=== PATIENT | male | born 1960 | race Caucasian/White ===

== ENCOUNTER → 2019-10-25 12:06 | Outpatient (BNVA) | payer MEDICARE, SELFPAY | PROVIDERS: Family Provider Nurse Practitioner; PCP Nurse Practitioner; Visit Provider Specialist | DX: G40.409 Other generalized epilepsy and epileptic syndromes, not intractable, without status epilepticus (principal); G40.209 Localization-related (focal) (partial) symptomatic epilepsy and epileptic syndromes with complex partial seizures, not intractable, without status epilepticus; F17.210 Nicotine dependence, cigarettes, uncomplicated | CPT/HCPCS: 99214 ==

== ENCOUNTER → 2019-11-05 09:57 | Outpatient (BNVA) | payer MEDICARE, MEDICAID, SELFPAY | PROVIDERS: Family Provider Nurse Practitioner; PCP Nurse Practitioner; Visit Provider Nurse Practitioner | DX: M47.816 Spondylosis without myelopathy or radiculopathy, lumbar region (principal); G40.909 Epilepsy, unspecified, not intractable, without status epilepticus; F17.210 Nicotine dependence, cigarettes, uncomplicated; Z79.891 Long term (current) use of opiate analgesic | CPT/HCPCS: 99213; 99214 ==

== ENCOUNTER 2019-12-01 17:49 | Emergency (ER) | payer MEDICARE, MEDICAID, SELFPAY ==
[2019-12-01] VITALS (7 sets, daily range): BP systolic 107–127; BP diastolic 77–93; PULSE 78–105; RESP 18–20; TEMP 36.7; O2SAT 92–95; BMI 24.3
--- NOTE | 2019-12-01 18:27 | ED_ITS ---
Entered by Shant Kim, acting as scribe for José Miguel Mendez MD Dec 01, 2019 17:49 HPI - General Adult General: Chief complaint: General Medical Stated complaint: romero Time Seen by Provider: 12/01/19 18:25 History of Present Illness: HPI narrative: 59 yo male presents with headache. Pt states that he has had sinus pain and wheezing. pt states that he has been vomiting and coughing. States his cough has been productive. He denies any worsening or improving factors. He has had low-grade fevers. MD complaint: headache Associated symptoms: Reports chest pain, dyspnea, headache(s), nausea and vomiting; Deny rash Review of Systems Const: Denies: fever, chills, body aches or change in appetite Eyes: Denies: blurry vision or eye discomfort ENMT: Denies: throat pain or dental pain Card: Reports: chest pain Resp: Reports: shortness of breath, non-productive cough and wheezing GI: Reports: nausea and vomiting; Denies: abdominal pain or diarrhea : Denies: painful urination Musc: Denies: neck pain or back pain Skin/Breast: Denies: rash Neuro: Reports: headache Psych: Denies: depression [place]/Lymph: Denies: easy bruising All/Imm: Denies: hives PFSH ED PFSH: Statuses (acute, chronic, etc) shown below reflect problem list status as previously entered and may not be historically accurate Medical History Amputated great toe of left foot COPD (chronic obstructive pulmonary disease) CVA (cerebral vascular accident) Depression Epilepsy Hx of fracture of ankle SURGICAL REPAIR RIGHT ANKLE Hyperlipemia Long-term use of high-risk medication Smoker Surgical History (Updated 11/05/19 @ 10:36 by HAL Tate) H/O hand surgery RIGHT HAND POST FRACTURE Hx of facial fracture repair ERROR DELETE Social History Smoking and tobacco status: current some day smoker cigarettes [ Other cigarette details: HE IS TRYING TO STOP SMOKING. ] Alcohol intake: former Year of sobriety/quit date alcohol: 2019 Caregiver/support person: Yes Lives independently: Yes Household members: spouse Physical Exam Const: COMMON NORMALS: no apparent distress, oriented x3 and healthy appearing HENMT: COMMON NORMALS: normocephalic and head/scalp atraumatic HEAD & SCALP: normocephalic and atraumatic Eye: COMMON NORMALS: PERRL and EOMs intact bilaterally PUPIL: Yes PERRL Neck/C-Spine: COMMON NORMALS: full ROM and supple Chest: COMMONS NORMALS: inspection of chest normal and palpation of chest normal Resp: AUSCULTATION: wheezes Cardio: COMMON NORMALS: regular rate, regular rhythm and no murmurs RATE: regular rate RHYTHM: regular rhythm GI: COMMON NORMALS: normal to inspection, nondistended, normoactive bowel sounds, soft to palpation, non-tender and no masses PALPATION: Yes soft Extremity: COMMON NORMALS: normal to inspection and full ROM Neuro: COMMON NORMALS: oriented x3, moves all extremities and no focal motor deficits Psych: COMMON NORMALS: mental status grossly normal, thought process normal and cooperative THOUGHT PROCESS: normal thought process Skin: COMMON NORMALS: no rashes or lesions noted and no wounds GENERAL SKIN EXAM: no rashes or lesions noted Course Vital Signs: Vital signs: Vital Signs Temperature 98.0 F 12/01/19 17:59 Pulse Rate 88 12/01/19 20:16 Respiratory Rate 18 12/01/19 20:16 Blood Pressure 107/93 12/01/19 20:16 Pulse Oximetry 94 12/01/19 20:16 MDM - General Adult MDM Narrative: Medical decision making narrative: Patient presents here with cough congestion and likely bronchitis. Patient likely has undiagnosed COPD. Patient is much improved after breathing treatments. Will prescribe him albuterol along with Keflex and prednisone. He is to follow-up with a primary care doctor in 3 to 5 days return if worsening. Lab Data: Labs: Lab Results 12/01/19 12/01/19 12/01/19 Range/Units 18:33 18:45 18:45 WBC 8.9 (4.0-10.0) 10^3/ uL RBC 4.85 (4.1-5.3) 10^6/u L Hgb 14.9 (11.7-16.6) g/dL Hct 44.7 (42.0-52.0) % MCV 92.2 (80-94) fL MCH 30.7 (28.0-34.0) pg MCHC 33.3 (30.0-36.0) g/dL RDW 14.3 (12.1-15.1) % Plt Count 302 (130-400) 10^3/c mm MPV 8.9 (7.4-10.4) fL Neut % (Auto) 47.9 % Lymph % (Auto) 37.0 % [place] % (Auto) 8.6 % Eos % (Auto) 5.0 % Baso % (Auto) 1.2 % Neut # (Auto) 4.3 (1.8-7.7) 10^3/u L Lymph # (Auto) 3.3 (0.8-4.8) 10^3/u L [place] # (Auto) 0.8 (0.2-0.9) 10^3/u L Eos # (Auto) 0.4 (0.0-0.8) 10^3/u L Baso # (Auto) 0.1 (0.0-0.1) 10^3/u L Nucleated RBC % (a uto) 0 % Nucleated RBCs # 0.0 /100WBC Sodium 140 (136-145) mmol/L Potassium 4.3 (3.5-5.1) mmol/L Chloride 109 H (98-107) mmol/L Carbon Dioxide 19 L (22-29) mmol/L Anion Gap 16.3 (5-19) BUN 18 (6-20) mg/dL Creatinine 0.9 (0.7-1.2) mg/dL GFR Calculation 86.4 L (90-130) mL/min Glucose 107 (65-115) mg/dL Calcium 9.5 (8.5-10.5) mg/dL Total Bilirubin 0.2 (0.15-1.2) mg/dL AST 27 (0-40) U/L ALT 37 (0-41) U/L Alkaline Phosphata se 91 (40-130) IU/L Total Protein 7.9 (6.6-8.7) g/dL Albumin 4.4 (3.5-5.2) g/dL Globulin 3.5 (1.3-4.6) g/dL Lipase 19 (13-60) U/L Influenza Type A A g Negative (Negative) POC Influenza B Ag Negative (Negative) Imaging Data^: CXR: Attestation: I personally reviewed and interpreted this imaging study as follows: My impression: No acute abnormality Discharge Plan Discharge Patient Disposition: Home, Self-Care Clinical Impression: Bronchitis Condition: Stable Prescriptions: New albuterol sulfate 90 mcg/actuation HFA aerosol inhaler 2 inh INHALATION Q6H PRN (Reason: shortness of breath) Qty: 8 RF: 0 Keflex 500 mg capsule 500 mg PO Q6H 7 Days Qty: 28 RF: 0 prednisone 50 mg tablet 50 mg PO DAILY Qty: 5 RF: 0 No Action albuterol sulfate [Ventolin HFA] 90 mcg/actuation HFA aerosol inhaler 2 puff INHALATION Q6H PRNRF: 0 phenytoin sodium extended 100 mg capsule 200 mg PO ONCE RF: 0 methylprednisolone acetate [Depo-Medrol] 80 mg/mL suspension 80 mg Infiltration ONCE Qty: 1 RF: 0 bupivacaine (PF) 0.25 % (2.5 mg/mL) solution 3 ml Infiltration ONCE Qty: 1 RF: 0 gabapentin 400 mg capsule 400 mg PO TID Qty: 90 RF: 3 tizanidine 2 mg tablet 2 mg PO .1-2 tabs TID PRN (Reason: muscle spasticity) Qty: 180 RF: 1 hydrocodone-acetaminophen 10-325 mg tablet 1 tab PO QID PRN (Reason: pain) 30 Days Qty: 120 RF: 0 hydrocodone-acetaminophen 10-325 mg tablet 1 tab PO QID PRN (Reason: pain) 30 Days Qty: 120 RF: 0 diphenhydramine HCl [Banophen] 25 mg capsule 25 mg PO TID PRNRF: 0 pantoprazole 40 mg tablet,delayed release (DR/EC) 40 mg PO ONCE RF: 0 topiramate 50 mg tablet 50 mg PO .1 am & 2 HS RF: 0 simvastatin 20 mg tablet 20 mg PO DAILY RF: 0 zolpidem [Ambien] 10 mg tablet 10 mg PO .hs RF: 0 escitalopram oxalate 20 mg tablet 20 mg PO DAILY RF: 0 escitalopram oxalate 10 mg tablet 10 mg PO DAILY RF: 0 topiramate 100 mg tablet 100 mg PO BID RF: 0 divalproex 500 mg tablet extended release 24 hr 1,500 mg PO DAILY RF: 0 buspirone 15 mg tablet 15 mg PO BID PRN (Reason: anxiety) 60 Days Qty: 60 RF: 1 Discharge Orders: Discharge Order (Routine); Ordered 12/01/19 Ordered By: José Miguel Mendez Referrals: Mere Alarcon FNP [Primary Care Provider] - 4-7 days Discharge Diet: Advance as tolerated Discharge Activity: Resume usual activity Patient Instructions: Acute Bronchitis (ED) Discharge Date/Time: 12/01/19 20:16 Coding Level of Care Code ED Director Of Home Economics for Chg Fwd Exam Problem Focused The documentation recorded by the Julio garduno Kialy, accurately reflects the service I personally performed and the decisions made by , José Miguel Mendez MD Dec 01, 2019 17:49
--- NOTE | 2019-12-01 18:34 | XRR_ITS ---
PROCEDURE INFORMATION: Exam: XR Chest, 1 View Exam date and time: 12/01/2019 6:48 PM Age: 59 years old Clinical indication: Cough TECHNIQUE: Imaging protocol: XR of the chest Views: Frontal portable upright view of the chest. COMPARISON: CR Ribs RIGHT w PA Chest [id number] 09/22/2019 6:18 PM FINDINGS: Lungs: The lungs are clear bilaterally. The pulmonary vasculature is normal. Pleural space: No pleural effusion. No pneumothorax. Heart/Mediastinum: The heart is normal in size and contour. Mediastinum: Stable. Bones/joints: Stable. XR/XR chest 1V portable [id number] IMPRESSION: No acute cardiopulmonary abnormality identified.
[2019-12-01] MEDS: ipratropium-albuterol 3 mL Neb INHALATION (18:48)
[2019-12-01 19:01] LABS: Basophils # 0.1 10^3/uL (0.0-0.1); Basophils % 1.2 %; Eosinophils # 0.4 10^3/uL (0.0-0.8); Hematocrit 44.7 % (42.0-52.0); Hemoglobin 14.9 g/dL (11.7-16.6); Lymphocytes # 3.3 10^3/uL (0.8-4.8); Mean Corpuscular HGB Conc 33.3 g/dL (30.0-36.0); Mean Corpuscular Hemoglobin 30.7 pg (28.0-34.0); Mean Corpuscular Volume 92.2 fL (80-94); Mean Platelet Volume 8.9 fL (7.4-10.4); Monocytes # 0.8 10^3/uL (0.2-0.9); Monocytes % 8.6 %; Neutrophils # 4.3 10^3/uL (1.8-7.7); Neutrophils % 47.9 %; Nucleated Red Blood Cells % 0 %; Platelet Count 302 10^3/cmm (130-400); Red Blood Count 4.85 10^6/uL (4.1-5.3); Red Cell Distribution Width 14.3 % (12.1-15.1); White Blood Count 8.9 10^3/uL (4.0-10.0)
[2019-12-01 19:07] LABS: Alanine Aminotransferase 37 U/L (0-41); Albumin Level 4.4 g/dL (3.5-5.2); Alkaline Phosphatase 91 IU/L (40-130); Anion Gap 16.3 (5-19); Aspartate Amino Transferase 27 U/L (0-40); Blood Urea Nitrogen 18 mg/dL (6-20); Calcium 9.5 mg/dL (8.5-10.5); Carbon Dioxide 19 mmol/L (22-29); Chloride 109 mmol/L (98-107); Creatinine Clr Calc Pharmacy 87.5875; Globulin 3.5 g/dL (1.3-4.6); Glomerular Filtration Rate 86.4 mL/min (90-130); Glucose 107 mg/dL (65-115); Lipase 19 U/L (13-60); Potassium 4.3 mmol/L (3.5-5.1); Sodium 140 mmol/L (136-145); Total Bilirubin 0.2 mg/dL (0.15-1.2); Total Protein 7.9 g/dL (6.6-8.7)
[2019-12-01 19:12] LABS: Influenza A by IFA Negative (Negative); Influenza B by IFA Negative (Negative)
[2019-12-01] MEDS: acetaminophen 500 mg Tablet 1000 MG PO (19:39)
== END 2019-12-01 20:16 | disposition home or self-care (01) ==
PROVIDERS: Emergency Provider Emergency Medicine; Family Provider Nurse Practitioner; PCP Nurse Practitioner
DX: J44.9 Chronic obstructive pulmonary disease, unspecified (principal); G40.909 Epilepsy, unspecified, not intractable, without status epilepticus; E78.5 Hyperlipidemia, unspecified; F17.210 Nicotine dependence, cigarettes, uncomplicated; Z86.73 Personal history of transient ischemic attack (TIA), and cerebral infarction without residual deficits; Z79.899 Other long term (current) drug therapy
CPT/HCPCS: 36415; 71045; 80053; 83690; 85025; 87804; 94640; 96374; 96375; 99281; 99284; J2930; J7611

== ENCOUNTER → 2019-12-15 08:49 | Outpatient (BNVA) | payer MEDICARE, MEDICAID, SELFPAY | PROVIDERS: Family Provider Nurse Practitioner; PCP Nurse Practitioner; Visit Provider Nurse Practitioner | DX: F33.1 Major depressive disorder, recurrent, moderate (principal); F41.1 Generalized anxiety disorder | CPT/HCPCS: 99213 ==

== ENCOUNTER → 2020-01-11 10:46 | Outpatient (BNVA) | payer MEDICARE, MEDICAID, SELFPAY | PROVIDERS: Family Provider Nurse Practitioner; PCP Nurse Practitioner; Visit Provider Nurse Practitioner | DX: M47.816 Spondylosis without myelopathy or radiculopathy, lumbar region (principal); M47.817 Spondylosis without myelopathy or radiculopathy, lumbosacral region; M54.9 Dorsalgia, unspecified; F17.210 Nicotine dependence, cigarettes, uncomplicated; Z79.891 Long term (current) use of opiate analgesic; Z71.6 Tobacco abuse counseling | CPT/HCPCS: 99214 ==

== ENCOUNTER → 2020-01-13 13:30 | Outpatient (BNVA) | payer MEDICARE, MEDICAID, SELFPAY | PROVIDERS: Family Provider Nurse Practitioner; PCP Nurse Practitioner; Visit Provider Anesthesiology Pain Medicine | DX: M47.817 Spondylosis without myelopathy or radiculopathy, lumbosacral region (principal); F17.210 Nicotine dependence, cigarettes, uncomplicated | CPT/HCPCS: 64493; 64494; 64495; 64520; J2001; J3490 ==

== ENCOUNTER → 2020-02-22 12:54 | Outpatient (BNVA) | payer MEDICARE, MEDICAID, SELFPAY | PROVIDERS: Family Provider Nurse Practitioner; PCP Nurse Practitioner; Visit Provider Anesthesiology | DX: M47.816 Spondylosis without myelopathy or radiculopathy, lumbar region (principal); M47.817 Spondylosis without myelopathy or radiculopathy, lumbosacral region; M79.651 Pain in right thigh; F17.210 Nicotine dependence, cigarettes, uncomplicated; Z71.6 Tobacco abuse counseling; Z79.891 Long term (current) use of opiate analgesic | CPT/HCPCS: 99214 ==

== ENCOUNTER → 2020-03-07 07:47 | Outpatient (BNVA) | payer MEDICARE, MEDICAID, SELFPAY | PROVIDERS: Family Provider Nurse Practitioner; PCP Nurse Practitioner; Visit Provider Nurse Practitioner | DX: F33.1 Major depressive disorder, recurrent, moderate (principal); F41.1 Generalized anxiety disorder | CPT/HCPCS: 99214 ==

== ENCOUNTER → 2020-04-20 09:49 | Outpatient (BNVA) | payer MEDICARE, MEDICAID, SELFPAY | PROVIDERS: Family Provider Nurse Practitioner; PCP Nurse Practitioner; Visit Provider Anesthesiology | DX: M54.41 Lumbago with sciatica, right side (principal); M47.816 Spondylosis without myelopathy or radiculopathy, lumbar region; M47.817 Spondylosis without myelopathy or radiculopathy, lumbosacral region; F17.210 Nicotine dependence, cigarettes, uncomplicated; Z79.891 Long term (current) use of opiate analgesic; Z71.6 Tobacco abuse counseling | CPT/HCPCS: 62323; 99212; 99214; J1040; J3490 ==

== ENCOUNTER → 2020-05-17 07:39 | Outpatient (BNVA) | payer MEDICARE, MEDICAID, SELFPAY | PROVIDERS: Family Provider Nurse Practitioner; PCP Nurse Practitioner; Visit Provider Nurse Practitioner | DX: F41.1 Generalized anxiety disorder (principal); F33.1 Major depressive disorder, recurrent, moderate | CPT/HCPCS: 99214 ==

== ENCOUNTER → 2020-05-29 16:05 | Outpatient (BNVA) | payer OTHER, SELFPAY | PROVIDERS: Family Provider Nurse Practitioner; PCP Nurse Practitioner; Visit Provider Nurse Practitioner | DX: F41.1 Generalized anxiety disorder (principal); Z79.899 Other long term (current) drug therapy | CPT/HCPCS: 80061; 83036; 83721 ==

== ENCOUNTER → 2020-06-05 14:49 | Outpatient (BNVA) | payer MEDICARE, MEDICAID, SELFPAY ==
[2020-05-31 16:25] VITALS: BP 123/84; BMI 23.2
== END ==
PROVIDERS: Family Provider Nurse Practitioner; PCP Nurse Practitioner; Visit Provider Internal Medicine
DX: Z01.812 Encounter for preprocedural laboratory examination (principal)
CPT/HCPCS: 87635

== ENCOUNTER 2020-06-08 13:09 | Outpatient (CLI) | payer MEDICARE, MEDICAID, SELFPAY ==
[2020-05-31 16:25] VITALS: BP 123/84; BMI 23.2
--- NOTE | 2020-06-08 13:47 | PFTS_ITS ---
Date of Study:06/08/20 Date of Dictation: MECHANICS: Forced vital capacity (FVC) is reduced. Forced expiratory volume in one second (FEV1) is reduced. FEV1/FVC is reduced. FLOW VOLUME LOOP: Reduced flow at all lung volumes. LUNG VOLUMES: Not performed DIFFUSING CAPACITY FOR CARBON MONOXIDE: Not performed INTERPRETATION: The spirometry is consistent with moderate obstruction. A component of restriction cannot be ruled out in the absence of lung volumes. MTDD
== END 2020-06-08 13:10 | disposition home or self-care (01) ==
LOC: RT 13:10
PROVIDERS: PCP Family Medicine; Visit Provider Family Medicine
DX: J44.9 Chronic obstructive pulmonary disease, unspecified (principal)
CPT/HCPCS: 94010

== ENCOUNTER → 2020-06-21 09:00 | Outpatient (BNVA) | payer MEDICARE, MEDICAID, SELFPAY ==
[2020-05-31 16:25] VITALS: BP 123/84; BMI 23.2
== END ==
PROVIDERS: Family Provider Nurse Practitioner; PCP Family Medicine; Visit Provider Anesthesiology
DX: M54.41 Lumbago with sciatica, right side (principal); M47.816 Spondylosis without myelopathy or radiculopathy, lumbar region; M47.817 Spondylosis without myelopathy or radiculopathy, lumbosacral region; F17.219 Nicotine dependence, cigarettes, with unspecified nicotine-induced disorders; Z79.891 Long term (current) use of opiate analgesic; Z71.6 Tobacco abuse counseling
CPT/HCPCS: 99214

== ENCOUNTER → 2020-07-05 14:14 | Outpatient (BNVA) | payer MEDICARE, MEDICAID, SELFPAY ==
[2020-05-31 16:25] VITALS: BP 123/84; BMI 23.2
== END ==
PROVIDERS: Family Provider Nurse Practitioner; PCP Family Medicine; Visit Provider Family Medicine
DX: Z13.6 Encounter for screening for cardiovascular disorders (principal); F17.219 Nicotine dependence, cigarettes, with unspecified nicotine-induced disorders
CPT/HCPCS: 80053; 80061; 83721

== ENCOUNTER → 2020-07-12 07:52 | Outpatient (BNVA) | payer MEDICARE, MEDICAID, SELFPAY ==
[2020-05-31 16:25] VITALS: BP 123/84; BMI 23.2
== END ==
PROVIDERS: Family Provider Nurse Practitioner; PCP Family Medicine; Visit Provider Specialist
DX: I63.9 Cerebral infarction, unspecified (principal); G40.209 Localization-related (focal) (partial) symptomatic epilepsy and epileptic syndromes with complex partial seizures, not intractable, without status epilepticus; G81.11 Spastic hemiplegia affecting right dominant side
CPT/HCPCS: 64642; 99214; J0585

== ENCOUNTER → 2020-07-18 07:40 | Outpatient (BNVA) | payer MEDICARE, MEDICAID, SELFPAY ==
[2020-05-31 16:25] VITALS: BP 123/84; BMI 23.2
== END ==
PROVIDERS: Family Provider Nurse Practitioner; PCP Family Medicine; Visit Provider Nurse Practitioner
DX: F33.1 Major depressive disorder, recurrent, moderate (principal); F41.1 Generalized anxiety disorder
CPT/HCPCS: 99213

== ENCOUNTER → 2020-08-15 09:13 | Outpatient (BNVA) | payer MEDICARE, SELFPAY ==
[2020-05-31 16:25] VITALS: BP 123/84; BMI 23.2
== END ==
PROVIDERS: Family Provider Nurse Practitioner; PCP Family Medicine; Visit Provider Family Medicine
DX: E78.5 Hyperlipidemia, unspecified (principal); J20.8 Acute bronchitis due to other specified organisms; B96.89 Other specified bacterial agents as the cause of diseases classified elsewhere
CPT/HCPCS: 80053

== ENCOUNTER → 2020-08-23 09:03 | Outpatient (BNVA) | payer MEDICARE, SELFPAY ==
[2020-05-31 16:25] VITALS: BP 123/84; BMI 23.2
== END ==
PROVIDERS: Family Provider Nurse Practitioner; PCP Family Medicine; Visit Provider Anesthesiology
DX: M47.816 Spondylosis without myelopathy or radiculopathy, lumbar region (principal); M47.817 Spondylosis without myelopathy or radiculopathy, lumbosacral region; F17.219 Nicotine dependence, cigarettes, with unspecified nicotine-induced disorders; Z79.891 Long term (current) use of opiate analgesic
CPT/HCPCS: 99213; 99214

== ENCOUNTER → 2020-10-03 09:49 | Outpatient (BNVA) | payer MEDICARE, MEDICAID, SELFPAY ==
[2020-05-31 16:25] VITALS: BP 123/84; BMI 23.2
== END ==
PROVIDERS: Family Provider Nurse Practitioner; PCP Family Medicine; Visit Provider Nurse Practitioner
DX: F33.1 Major depressive disorder, recurrent, moderate (principal); F41.1 Generalized anxiety disorder
CPT/HCPCS: 99213

== ENCOUNTER → 2020-10-19 09:15 | Outpatient (BNVA) | payer MEDICARE, SELFPAY ==
[2020-05-31 16:25] VITALS: BP 123/84; BMI 23.2
== END ==
PROVIDERS: Family Provider Nurse Practitioner; PCP Family Medicine; Visit Provider Anesthesiology
DX: M47.816 Spondylosis without myelopathy or radiculopathy, lumbar region (principal); M47.817 Spondylosis without myelopathy or radiculopathy, lumbosacral region; F17.219 Nicotine dependence, cigarettes, with unspecified nicotine-induced disorders; Z79.891 Long term (current) use of opiate analgesic; Z71.6 Tobacco abuse counseling
CPT/HCPCS: 99213; 99214

== ENCOUNTER → 2020-12-13 09:34 | Outpatient (BNVA) | payer MEDICARE, MEDICAID, SELFPAY ==
[2020-05-31 16:25] VITALS: BP 123/84; BMI 23.2
== END ==
PROVIDERS: Family Provider Nurse Practitioner; PCP Family Medicine; Visit Provider Anesthesiology
DX: G89.29 Other chronic pain (principal); M47.816 Spondylosis without myelopathy or radiculopathy, lumbar region; M47.817 Spondylosis without myelopathy or radiculopathy, lumbosacral region; M54.9 Dorsalgia, unspecified; M25.511 Pain in right shoulder; F17.200 Nicotine dependence, unspecified, uncomplicated; Z79.891 Long term (current) use of opiate analgesic; Z79.899 Other long term (current) drug therapy
CPT/HCPCS: 99213; 99214

== ENCOUNTER → 2020-12-14 09:29 | Outpatient (BNVA) | payer MEDICARE, MEDICAID, SELFPAY ==
[2020-05-31 16:25] VITALS: BP 123/84; BMI 23.2
== END ==
PROVIDERS: Family Provider Nurse Practitioner; PCP Family Medicine; Visit Provider Family Medicine
DX: E78.2 Mixed hyperlipidemia (principal); R35.1 Nocturia
CPT/HCPCS: 80053; 80061; 84153; 85025

== ENCOUNTER → 2020-12-15 14:00 | Outpatient (BNVA) | payer MEDICARE, MEDICAID, SELFPAY ==
[2020-05-31 16:25] VITALS: BP 123/84; BMI 23.2
== END ==
PROVIDERS: Family Provider Nurse Practitioner; PCP Family Medicine; Visit Provider Family Medicine
DX: E78.2 Mixed hyperlipidemia (principal); R35.1 Nocturia; F17.219 Nicotine dependence, cigarettes, with unspecified nicotine-induced disorders; R79.9 Abnormal finding of blood chemistry, unspecified
CPT/HCPCS: 82607

== ENCOUNTER → 2020-12-28 07:58 | Outpatient (BNVA) | payer MEDICARE, MEDICAID, SELFPAY ==
[2020-05-31 16:25] VITALS: BP 123/84; BMI 23.2
== END ==
PROVIDERS: Family Provider Nurse Practitioner; PCP Family Medicine; Visit Provider Nurse Practitioner
DX: F33.1 Major depressive disorder, recurrent, moderate (principal); F41.1 Generalized anxiety disorder
CPT/HCPCS: 99214

== ENCOUNTER → 2021-02-14 09:12 | Outpatient (BNVA) | payer MEDICARE, MEDICAID, SELFPAY ==
[2020-05-31 16:25] VITALS: BP 123/84; BMI 23.2
== END ==
PROVIDERS: Family Provider Nurse Practitioner; PCP Family Medicine; Visit Provider Anesthesiology
DX: G89.29 Other chronic pain (principal); M47.816 Spondylosis without myelopathy or radiculopathy, lumbar region; M47.817 Spondylosis without myelopathy or radiculopathy, lumbosacral region; M54.9 Dorsalgia, unspecified; M25.511 Pain in right shoulder; F17.210 Nicotine dependence, cigarettes, uncomplicated; Z79.899 Other long term (current) drug therapy; Z79.891 Long term (current) use of opiate analgesic
CPT/HCPCS: 99213; 99214

== ENCOUNTER → 2021-02-26 14:24 | Outpatient (BNVA) | payer OTHER, SELFPAY ==
[2021-02-14 09:55] VITALS: BP 123/84; BMI 23.2
== END ==
PROVIDERS: Family Provider Nurse Practitioner; PCP Family Medicine; Visit Provider Nurse Practitioner
DX: F41.1 Generalized anxiety disorder (principal)
CPT/HCPCS: 80061; 83036

== ENCOUNTER → 2021-04-03 07:49 | Outpatient (BNVA) | payer MEDICARE, MEDICAID, SELFPAY ==
[2021-03-08 10:40] VITALS: BP 120/81; BMI 24.1
== END ==
PROVIDERS: Family Provider Nurse Practitioner; PCP Family Medicine; Visit Provider Specialist
DX: G81.11 Spastic hemiplegia affecting right dominant side (principal); G43.711 Chronic migraine without aura, intractable, with status migrainosus; Z86.73 Personal history of transient ischemic attack (TIA), and cerebral infarction without residual deficits; F17.210 Nicotine dependence, cigarettes, uncomplicated
CPT/HCPCS: 99213; 99214

== ENCOUNTER → 2021-04-19 08:59 | Outpatient (BNVA) | payer MEDICARE, MEDICAID, SELFPAY ==
[2021-03-08 10:40] VITALS: BP 120/81; BMI 24.1
== END ==
PROVIDERS: Family Provider Nurse Practitioner; PCP Family Medicine; Visit Provider Nurse Practitioner
DX: G89.29 Other chronic pain (principal); M47.816 Spondylosis without myelopathy or radiculopathy, lumbar region; M47.817 Spondylosis without myelopathy or radiculopathy, lumbosacral region; M54.9 Dorsalgia, unspecified; G43.711 Chronic migraine without aura, intractable, with status migrainosus; G81.11 Spastic hemiplegia affecting right dominant side; F17.219 Nicotine dependence, cigarettes, with unspecified nicotine-induced disorders; Z79.891 Long term (current) use of opiate analgesic; Z79.899 Other long term (current) drug therapy; Z71.6 Tobacco abuse counseling
CPT/HCPCS: 99214

== ENCOUNTER → 2021-04-26 08:30 | Outpatient (BNVA) | payer MEDICARE, MEDICAID, SELFPAY ==
[2021-03-08 10:40] VITALS: BP 120/81; BMI 24.1
== END ==
PROVIDERS: Family Provider Nurse Practitioner; PCP Family Medicine; Visit Provider Nurse Practitioner
DX: F33.1 Major depressive disorder, recurrent, moderate (principal); F41.1 Generalized anxiety disorder
CPT/HCPCS: 99214

== ENCOUNTER 2021-05-23 12:47 | Emergency (ER) | payer MEDICARE, MEDICAID, SELFPAY ==
[2021-03-08 10:40] VITALS: BP 120/81; BMI 24.1
[2021-05-23 13:13] VITALS: BMI 21.4
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
[2021-05-23 13:39] VITALS: BP 120/78; PULSE 59; RESP 16; TEMP 36.7; O2SAT 95
[2021-05-23 13:52] VITALS: BMI 25.0
[2021-05-23 13:56] VITALS: BP 120/78; PULSE 59; RESP 16; TEMP 36.7; O2SAT 95
--- NOTE | 2021-05-23 13:57 | XR_ITS ---
WS: [id number] Left hand, 3 views, 05/23/2021 Clinical Data: possible foreign body in 3rd digit Comparison: None. Findings: No fractures or dislocations are seen. The soft tissues are unremarkable. The joint spaces are normal No radiopaque foreign body is noted in the third finger. There is a small radiopaque foreign body adj acent to the radial side of the trapezium which appears to be a small wire fragment. XR/XR hand LT min 3V* [id number] Impression: Small wire fragment on the radial side of the subcutaneous tissue adjacent to t he trapezium of the left hand.
== END 2021-05-23 14:37 | disposition home or self-care (01) ==
PROVIDERS: Emergency Provider Physician Assistant; PCP Family Medicine
DX: B07.8 Other viral warts (principal); Z86.73 Personal history of transient ischemic attack (TIA), and cerebral infarction without residual deficits; E78.5 Hyperlipidemia, unspecified; J44.9 Chronic obstructive pulmonary disease, unspecified; F17.210 Nicotine dependence, cigarettes, uncomplicated
CPT/HCPCS: 73130; 99282

== ENCOUNTER → 2021-06-04 09:30 | Outpatient (BNVA) | payer MEDICARE, MEDICAID, SELFPAY ==
[2021-03-08 10:40] VITALS: BP 120/81; BMI 24.1
== END ==
PROVIDERS: PCP Family Medicine; Visit Provider Family Medicine
DX: E78.2 Mixed hyperlipidemia (principal); M25.511 Pain in right shoulder; G89.29 Other chronic pain; F17.219 Nicotine dependence, cigarettes, with unspecified nicotine-induced disorders
CPT/HCPCS: 80053

== ENCOUNTER → 2021-06-14 09:34 | Outpatient (BNVA) | payer MEDICARE, MEDICAID, SELFPAY ==
[2021-03-08 10:40] VITALS: BP 120/81; BMI 24.1
== END ==
PROVIDERS: PCP Family Medicine; Visit Provider Nurse Practitioner
DX: G89.29 Other chronic pain (principal); M47.816 Spondylosis without myelopathy or radiculopathy, lumbar region; M47.817 Spondylosis without myelopathy or radiculopathy, lumbosacral region; F17.219 Nicotine dependence, cigarettes, with unspecified nicotine-induced disorders; Z79.891 Long term (current) use of opiate analgesic; Z71.6 Tobacco abuse counseling
CPT/HCPCS: 99214

== ENCOUNTER → 2021-07-23 09:33 | Outpatient (BNVA) | payer MEDICARE, MEDICAID, SELFPAY ==
[2021-03-08 10:40] VITALS: BP 120/81; BMI 24.1
== END ==
PROVIDERS: PCP Family Medicine; Visit Provider Nurse Practitioner
DX: F33.1 Major depressive disorder, recurrent, moderate (principal); F41.1 Generalized anxiety disorder
CPT/HCPCS: 99214

== ENCOUNTER 2021-08-17 11:34 | Outpatient (CLI) | payer MEDICARE, MEDICAID, SELFPAY ==
[2021-03-08 10:40] VITALS: BP 120/81; BMI 24.1
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
== END 2021-08-17 11:35 | disposition home or self-care (01) ==
LOC: RAD 11:38
PROVIDERS: PCP Family Medicine; Visit Provider Family Medicine
DX: M25.511 Pain in right shoulder (principal); G89.29 Other chronic pain
CPT/HCPCS: 73030

== ENCOUNTER 2021-08-17 23:19 | Emergency (ER) | payer MEDICARE, MEDICAID, SELFPAY ==
[2021-03-08 10:40] VITALS: BP 120/81; BMI 24.1
[2021-08-17 23:24] VITALS: BP 128/86; PULSE 83; RESP 20; TEMP 36.1; O2SAT 97; BMI 24.3
--- NOTE | 2021-08-18 00:57 | ED_ITS ---
HPI - General Adult General: Chief complaint: General Medical Stated complaint: Fever\n\v\SOB Muscles Ache-Had Covid shot today Time Seen by Provider: 08/18/21 00:57 History of Present Illness: HPI narrative: 61-year-old male patient states he got his Covid vaccine today. Patient states he went home after the vaccine and had taken a nap and when he woke up he had body aches and felt nauseous and dizzy. Patient states that since then he has not been able to hold down his medication. Patient appears well. Patient appears no pain. Associated symptoms: Reports nausea and vomiting Review of Systems General: Reports: 10 or more systems reviewed and unremarkable except in HPI and below Const: Reports: body aches and fatigue GI: Reports: nausea and vomiting PFSH ED PFSH: Medical History Amputated great toe of left foot Chronic back pain CVA (cerebral vascular accident) Depression Encounter for long-term opiate analgesic use Epilepsy Generalized anxiety disorder History of amputation of great toe Hx of fracture of ankle SURGICAL REPAIR RIGHT ANKLE Hyperlipemia Long-term use of high-risk medication Major depressive disorder, recurrent, moderate Moderate COPD (chronic obstructive pulmonary disease) Opioid contract exists Psychiatric care Smoker Surgical History H/O hand surgery RIGHT HAND POST FRACTURE Hx of facial fracture repair ERROR DELETE Family History Sister Cancer Mother Cancer Father Cancer Denies family history of Anesthesia complication Bleeding disorder Social History Smoking and tobacco status: current every day smoker cigarettes Packs smoked per day: 0.5 Years cigarettes smoked: 44 Second hand smoke exposure: Yes Smoking risk assessment/counseling performed?: Yes Tobacco counseling given: counseling >3 minutes Alcohol intake: former Year of sobriety/quit date alcohol: 2019 Adopted: No Caregiver/support person: Yes (Brother takes care of him but he is his own guardian) Lives independently: No (lives with his brother and sister in law) Household members: family Housing: House Marital status: Number of children: 3 Number of grandchildren: 4 Highest education level completed: 11th Grade service: No Current occupational status: disabled Current occupational exposures/hazards: No Pets and animals: Yes Pets & animals: dog(s) and farm animals Farm Animals: chicken/turkey/other poultry Pets & animal details: pigs History of recent travel: No Leisure activites: other Leisure activities details: watches TV, helps with mechanical stuff Sexually active: No Current gender identity: Male Mili/L[employer]-Day: [employer] Special mili needs: No Agree to transfusion: Yes Financial difficulty paying for basics: Not Very Hard Physical Exam Const: COMMON NORMALS: no acute distress and patient oriented x3 GENERAL APPEARANCE: cooperative HENMT: COMMON NORMALS: normocephalic, TM's normal bilaterally and Normal external nose present HEAD & SCALP: normal to inspection and normocephalic NOSE: Normal external nose present TYMPANIC MEMBRANE: TM's normal bilaterally MOUTH: Normal oral and palatal mucosa present THROAT: posterior oropharynx normal Eye: GENERAL EYE: appearance normal, both eyes and all related structures Neck/C-Spine: COMMON NORMALS: full ROM Lymph: LYMPHATIC: no lymphadenopathy noted Chest: COMMONS NORMALS: normal inspection of the chest Resp: COMMON NORMALS: normal respiratory effort EFFORT & INSPECTION: Yes able to speak in complete sentences Cardio: COMMON NORMALS: regular rate and regular rhythm RATE: regular rate RHYTHM: regular rhythm GI: COMMON NORMALS: non-tender : COMMON NORMALS: Yes no CVA tenderness BLADDER/KIDNEY EXAM: Yes no CVA tenderness Back/Pelvis: COMMON NORMALS: no CVA tenderness and thoracic and lumbar spine normal to inspection Extremity: COMMON NORMALS: normal to inspection Neuro: COMMON NORMALS: patient oriented x3 and moves all extremities Psych: COMMON NORMALS: mental status grossly normal and cooperative Skin: COMMON NORMALS: no rashes or lesions noted GENERAL SKIN EXAM: no rashes or lesions noted Course Vital Signs: Vital signs: Vital Signs Temperature 96.9 F L 08/17/21 23:24 Pulse Rate 83 08/17/21 23:24 Respiratory Rate 20 H 08/17/21 23:24 Blood Pressure 128/86 08/17/21 23:24 Pulse Oximetry 97 08/17/21 23:24 MDM - General Adult MDM Narrative: Medical decision making narrative: Patient comes in today with complaints of nausea, dizziness, and body aches. Patient had got his Covid 19 vaccination today. On exam patient appears well. Respirations are even lungs are clear to auscultation. No focal neural deficits are noted. Skin is warm and dry. Differential diagnosis includes but not limited to gastroenteritis, immune response from vaccines, adverse drug effect. Patient does take routine narcotics. Exam was normal. Patient was given 1 dose of ondansetron for nausea and dizziness. And started on some Tylenol. Suspect patient is just having a immune response to his vaccine. Recommended monitoring for chest pain and shortness of breath and return as needed. Patient reported understanding and agreed to plan. Discharge Plan Discharge Patient Disposition: Home Clinical Impression: Vaccine reaction Qualifiers: Encounter type: initial encounter Qualified Code(s): T50.Z95A - Adverse effect of other vaccines and biological substances, initial encounter Condition: Stable Prescriptions: New ondansetron 4 mg tablet,disintegrating 4 mg PO Q8H PRN (Reason: nausea and vomiting) Qty: 7 RF: 0 No Action tizanidine 2 mg tablet 2 mg PO .1-2 tabs TID PRN (Reason: muscle spasticity) Qty: 180 RF: 1 gabapentin 400 mg capsule 400 mg PO TID 30 Days Qty: 90 RF: 1 hydrocodone-acetaminophen 10-325 mg tablet 1 tab PO .five times per day PRN (Reason: pain) 30 Days Qty: 150 RF: 0 hydrocodone-acetaminophen 10-325 mg tablet 1 tab PO .5 times daily PRN (Reason: pain) 30 Days Qty: 150 RF: 0 zolpidem [Ambien] 10 mg tablet 10 mg PO .hs Qty: 30 RF: 2 buspirone 15 mg tablet 15 mg PO BID 60 Days Qty: 60 RF: 2 duloxetine [Cymbalta] 60 mg capsule,delayed release(DR/EC) 60 mg PO DAILY Qty: 30 RF: 2 divalproex 500 mg tablet extended release 24 hr 1,500 mg PO DAILY Qty: 270 RF: 3 topiramate 100 mg tablet 100 mg PO BID Qty: 180 RF: 3 Trelegy Ellipta 100-62.5-25 mcg blister with device 1 inh INHALATION DAILY Qty: 60 RF: 5 pantoprazole 40 mg tablet,delayed release (DR/EC) 40 mg PO ONCE 30 Days Qty: 90 RF: 1 simvastatin 40 mg tablet 40 mg PO DAILY Qty: 90 RF: 1 albuterol sulfate [Ventolin HFA] 90 mcg/actuation HFA aerosol inhaler 2 puff INHALATION Q6H PRN (Reason: shortness of breath or wheezing) 90 Days Qty: 25.5 RF: 1 Discharge Orders: Discharge ED (Routine); Ordered 08/18/21 Ordered By: Juan Treviño Referrals: Kendra Hannah DO [Primary Care Provider] - Discharge Diet: Advance as tolerated Discharge Activity: Increase activity as tolerated Patient Instructions: SARS-COV-2 (By injection), Opioid Safety Activity Restrictions/Additional Instructions: Drink plenty of fluids. Use ondansetron for nausea and vomiting. Use acetaminophen as needed for body aches and fever. Over the next 2 to 3 days she will probably have body aches and fever due to your vaccine. Use the medication as directed to help combat these symptoms. Follow-up with primary care as needed. Return to the emergency department for new concerns. Coding Level of Care Code ED [employer]urb[employer] Service Technician for Crescencio Granados Exam Comprehensive
[2021-08-18 01:53] VITALS: BP 122/84; PULSE 83; RESP 18; O2SAT 97
== END 2021-08-18 01:45 | disposition home or self-care (01) ==
PROVIDERS: Emergency Provider Nurse Practitioner Family; PCP Family Medicine
DX: T50.Z95A Adverse effect of other vaccines and biological substances, initial encounter (principal); E78.5 Hyperlipidemia, unspecified; F17.210 Nicotine dependence, cigarettes, uncomplicated; Z79.899 Other long term (current) drug therapy; Z86.73 Personal history of transient ischemic attack (TIA), and cerebral infarction without residual deficits
CPT/HCPCS: 99281

== ENCOUNTER → 2021-08-23 08:39 | Outpatient (BNVA) | payer MEDICARE, MEDICAID, SELFPAY ==
[2021-03-08 10:40] VITALS: BP 120/81; BMI 24.1
== END ==
PROVIDERS: PCP Family Medicine; Visit Provider Anesthesiology
DX: G89.29 Other chronic pain (principal); M47.816 Spondylosis without myelopathy or radiculopathy, lumbar region; M47.817 Spondylosis without myelopathy or radiculopathy, lumbosacral region; M25.511 Pain in right shoulder; F17.219 Nicotine dependence, cigarettes, with unspecified nicotine-induced disorders; Z79.899 Other long term (current) drug therapy; Z79.891 Long term (current) use of opiate analgesic; Z71.6 Tobacco abuse counseling
CPT/HCPCS: 99214

== ENCOUNTER → 2021-09-07 11:11 | Outpatient (BNVA) | payer MEDICARE, MEDICAID, SELFPAY ==
[2021-03-08 10:40] VITALS: BP 120/81; BMI 24.1
== END ==
PROVIDERS: PCP Family Medicine; Visit Provider Nurse Practitioner
DX: F33.1 Major depressive disorder, recurrent, moderate (principal); F41.1 Generalized anxiety disorder
CPT/HCPCS: 99214

== ENCOUNTER → 2021-10-18 13:03 | Outpatient (BNVA) | payer MEDICARE, MEDICAID, SELFPAY ==
[2021-03-08 10:40] VITALS: BP 120/81; BMI 24.1
== END ==
PROVIDERS: PCP Family Medicine; Visit Provider Anesthesiology
DX: G89.29 Other chronic pain (principal); M47.816 Spondylosis without myelopathy or radiculopathy, lumbar region; M47.817 Spondylosis without myelopathy or radiculopathy, lumbosacral region; M25.511 Pain in right shoulder; F17.200 Nicotine dependence, unspecified, uncomplicated; Z79.899 Other long term (current) drug therapy; Z79.891 Long term (current) use of opiate analgesic
CPT/HCPCS: 99214

== ENCOUNTER 2021-10-25 07:35 | Emergency (ER) | payer MEDICARE, MEDICAID, SELFPAY ==
[2021-03-08 10:40] VITALS: BP 120/81; BMI 24.1
[2021-10-25 07:43] VITALS: BP 153/96; PULSE 74; RESP 16; TEMP 36.4; O2SAT 96
--- NOTE | 2021-10-25 07:47 | W.ED.EXTPRO ---
HPI - Extremity Problem General: Chief complaint: Extremity Injury, Upper Stated complaint: Burnning in arm and fingers are turning purple Time Seen by Provider: 10/25/21 07:45 History of Present Illness: MD Complaint: extremity pain PFSH ED PFSH: Medical History Amputated great toe of left foot Chronic back pain Cigarette smoker motivated to quit CVA (cerebral vascular accident) Depression Encounter for long-term opiate analgesic use Epilepsy Generalized anxiety disorder History of amputation of great toe Hx of fracture of ankle SURGICAL REPAIR RIGHT ANKLE Hyperlipemia Long-term use of high-risk medication Major depressive disorder, recurrent, moderate Moderate COPD (chronic obstructive pulmonary disease) Opioid contract exists Psychiatric care Smoker Surgical History H/O hand surgery RIGHT HAND POST FRACTURE Hx of facial fracture repair ERROR DELETE Family History Sister Cancer Mother Cancer Father Cancer Denies family history of Anesthesia complication Bleeding disorder Social History Second hand smoke exposure: Yes Smoking risk assessment/counseling performed?: Yes Tobacco counseling given: counseling >3 minutes Alcohol intake: former Year of sobriety/quit date alcohol: 2019 Adopted: No Caregiver/support person: Yes (Brother takes care of him but he is his own guardian) Lives independently: No (lives with his brother and sister in law) Household members: family Housing: House Marital status: Number of children: 3 Number of grandchildren: 4 Highest education level completed: 11th Grade service: No Current occupational status: disabled Current occupational exposures/hazards: No Pets and animals: Yes Pets & animals: dog(s) and farm animals Farm Animals: chicken/turkey/other poultry Pets & animal details: pigs History of recent travel: No Leisure activites: other Leisure activities details: watches TV, helps with mechanical stuff Sexually active: No Current gender identity: Male Mili/Spiritism: [employer]ar[employer] Special mili needs: No Agree to transfusion: Yes Financial difficulty paying for basics: Not Very Hard Course Vital Signs: Vital signs: Vital Signs Temperature 97.5 F L 10/25/21 07:43 Pulse Rate 74 10/25/21 07:43 Respiratory Rate 16 10/25/21 07:43 Blood Pressure 153/96 10/25/21 07:43 Pulse Oximetry 96 10/25/21 07:43 Discharge Plan Discharge Prescriptions: No Action hydrocodone-acetaminophen 10-325 mg tablet 1 tab PO .five times per day PRN (Reason: pain) 30 Days Qty: 150 RF: 0 hydrocodone-acetaminophen 10-325 mg tablet 1 tab PO .5 times daily PRN (Reason: pain) 30 Days Qty: 150 RF: 0 tizanidine 2 mg tablet 2 mg PO .1-2 tabs TID PRN (Reason: muscle spasticity) Qty: 180 RF: 1 gabapentin 400 mg capsule 400 mg PO TID 30 Days Qty: 90 RF: 1 divalproex 500 mg tablet extended release 24 hr 1,500 mg PO DAILY Qty: 270 RF: 3 topiramate 100 mg tablet 100 mg PO BID Qty: 180 RF: 3 duloxetine [Cymbalta] 60 mg capsule,delayed release(DR/EC) 60 mg PO DAILY Qty: 30 RF: 2 zolpidem [Ambien] 10 mg tablet 10 mg PO .hs Qty: 30 RF: 2 buspirone 15 mg tablet 15 mg PO BID 60 Days Qty: 60 RF: 2 Trelegy Ellipta 100-62.5-25 mcg blister with device 1 inh INHALATION DAILY Qty: 60 RF: 5 albuterol sulfate [Ventolin HFA] 90 mcg/actuation HFA aerosol inhaler 2 puff INHALATION Q6H PRN (Reason: shortness of breath or wheezing) 90 Days Qty: 25.5 RF: 1 pantoprazole 40 mg tablet,delayed release (DR/EC) 40 mg PO ONCE 30 Days Qty: 90 RF: 0 simvastatin 40 mg tablet See Rx Instructions .ROUTE .COMPLEX Qty: 90 RF: 0 ondansetron 4 mg tablet,disintegrating 4 mg PO Q8H PRN (Reason: nausea and vomiting) Qty: 7 RF: 0 Coding Level of Care Code ED Retail Loss Prevention Specialist for Leong Darwin
--- NOTE | 2021-10-25 08:03 | ED_ITS ---
HPI - Extremity Problem General: Chief complaint: Extremity Injury, Upper Stated complaint: Burnning in arm and fingers are turning purple Time Seen by Provider: 10/25/21 07:45 History of Present Illness: HPI Narrative: injury 4 to 5 months ago, right shoulder Complaint: extremity pain and cold extremity Pain Consistency: intermittent and now resolved Review of Systems General: Reports: 10 or more systems reviewed and unremarkable except in HPI and below Musc: Reports: extremity pain (right arm ) and joint pain (right shoulder) PFSH ED PFSH: Medical History Amputated great toe of left foot Chronic back pain Cigarette smoker motivated to quit CVA (cerebral vascular accident) Depression Encounter for long-term opiate analgesic use Epilepsy Generalized anxiety disorder History of amputation of great toe Hx of fracture of ankle SURGICAL REPAIR RIGHT ANKLE Hyperlipemia Long-term use of high-risk medication Major depressive disorder, recurrent, moderate Moderate COPD (chronic obstructive pulmonary disease) Opioid contract exists Psychiatric care Smoker Surgical History H/O hand surgery RIGHT HAND POST FRACTURE Hx of facial fracture repair ERROR DELETE Family History Sister Cancer Mother Cancer Father Cancer Denies family history of Anesthesia complication Bleeding disorder Social History Second hand smoke exposure: Yes Smoking risk assessment/counseling performed?: Yes Tobacco counseling given: counseling >3 minutes Alcohol intake: former Year of sobriety/quit date alcohol: 2018 Adopted: No Caregiver/support person: Yes (Brother takes care of him but he is his own guardian) Lives independently: No (lives with his brother and sister in law) Household members: family Housing: House Marital status: Number of children: 3 Number of grandchildren: 4 Highest education level completed: 11th Grade service: No Current occupational status: disabled Current occupational exposures/hazards: No Pets and animals: Yes Pets & animals: dog(s) and farm animals Farm Animals: chicken/turkey/other poultry Pets & animal details: pigs History of recent travel: No Leisure activites: other Leisure activities details: watches TV, helps with mechanical stuff Sexually active: No Current gender identity: Male Mili/Jain: Roman [employer] Special mili needs: No Agree to transfusion: Yes Financial difficulty paying for basics: Not Very Hard Physical Exam Const: COMMON NORMALS: no acute distress, patient oriented x3, no limitations and alert GENERAL APPEARANCE: cooperative and comfortable ORIENTATION/CONSCIOUSNESS: Yes awake, Yes oriented to person, Yes oriented to place and Yes oriented to time HENMT: COMMON NORMALS: normocephalic, atraumatic, external ears normal, EAC's normal, TM's normal bilaterally and Normal external nose present HEAD & SCALP: normal to inspection, normocephalic and atraumatic FACE & SINUS: normal facial exam, sinuses nontender and face symmetric NOSE: Normal external nose present, Normal nares present and No nasal discharge present EXTERNAL EAR: Yes external ears normal EXTERNAL AUDITORY CANAL: EAC's normal TYMPANIC MEMBRANE: TM's normal bilaterally MOUTH: Normal oral and palatal mucosa present, lip normal and tongue normal THROAT: posterior oropharynx normal, tonsils normal and uvula midline Eye: COMMON NORMALS: Equal, round and reactive pupils present, EOMs intact bilaterally and conjunctivae normal GENERAL EYE: appearance normal, both eyes and all related structures and normal light reflex EYELID: eyelids normal CONJUNCTIVA: Yes conjunctivae normal PUPIL: Yes Equal, round and reactive pupils present EOM: Yes EOM abnormal DIRECT OPHTHALMOSCOPY: Yes normal light reflex Neck/C-Spine: COMMON NORMALS: full ROM, no lymphadenopathy, supple, no meningeal signs, no JVD and Thyroid normal GENERAL: Yes normal visual inspection THYROID: Thyroid normal CERVICAL SPINE: Yes cervical ROM normal and Yes normal cervical lordosis Lymph: LYMPHATIC: no lymphadenopathy noted Chest: COMMONS NORMALS: normal inspection of the chest and normal palpation of entire chest wall Resp: COMMON NORMALS: normal respiratory effort, No retractions and clear to auscultation bilaterally AUSCULTATION: clear to auscultation bilaterally Cardio: COMMON NORMALS: no JVD, regular rate, regular rhythm, S1 normal heart sound present, S2 normal heart sound present, No gallops present (Cardio), No clicks present (Cardio), No murmurs present (Cardio), No rub (Cardio) and Peripheral pulses 2+ throughout RATE: regular rate RHYTHM: regular rhythm HEART SOUNDS: S1 normal heart sound present and S2 normal heart sound present PERIPHERAL PULSES: Peripheral pulses 2+ throughout GI: COMMON NORMALS: Normal to inspection, nondistended, normoactive bowel sounds present, Soft to palpation, non-tender and no masses PALPATION: Yes Soft to palpation : COMMON NORMALS: Yes no CVA tenderness BLADDER/KIDNEY EXAM: Yes no CVA tenderness Back/Pelvis: COMMON NORMALS: no CVA tenderness, thoracic and lumbar spine normal to inspection, no thoracic nor lumbar tenderness and thoraco-lumbar ROM normal Extremity: COMMON NORMALS: normal to inspection, full ROM, capillary refill normal, no joint enlargement, no clubbing, cyanosis or edema, no calf tenderness and no pedal edema GENERAL: Yes normal exam except as noted RIGHT UPPER EXTREMITY: Yes shoulder joint (tenderness to touch) Right shoulder: Yes Right shoulder joint inspection exam (normal inpection-trapezious weakening ), Yes palpation, Yes Right shoulder joint ROM exam (unable to perform passive or active ROM due to pain ) and Yes Right shoulder joint neurovascular exam (intact distally ) Neuro: COMMON NORMALS: patient oriented x3, moves all extremities, no focal motor deficits, no sensory deficits noted and gait normal SENSORIUM/ORIENTATION: Yes alert, Yes oriented to person, Yes oriented to place and Yes oriented to time MENINGEAL SIGNS: Yes no meningeal signs Psych: COMMON NORMALS: mental status grossly normal, Normal thought process present, cooperative, normal affect, speech normal and activity/motor behavior normal SPEECH: Yes normal speech THOUGHT PROCESS: Normal thought process present Skin: COMMON NORMALS: no rashes or lesions noted, no wounds and turgor normal GENERAL SKIN EXAM: no rashes or lesions noted and turgor normal Course ED course: Pt presents to ER with complaints of increased pain to his right shoulder after rotator cuff injury several months ago. He has been dependent on his sling and is tender to touch at the right shoulder. He notes his fingers in right hand will go cold and numb sometimes. Reinforced importance of passive ROM. Follow up with Dr. Felder for possible adhesive capsulitis and further imaging; possible steroid injections. Will DC from ER. Denies wanting pain meds. Vital Signs: Vital signs: Vital Signs Temperature 97.5 F L 10/25/21 07:43 Pulse Rate 74 10/25/21 07:43 Respiratory Rate 16 10/25/21 07:43 Blood Pressure 153/96 10/25/21 07:43 Pulse Oximetry 96 10/25/21 07:43 Discharge Plan Discharge Condition: Stable Prescriptions: No Action hydrocodone-acetaminophen 10-325 mg tablet 1 tab PO .five times per day PRN (Reason: pain) 30 Days Qty: 150 RF: 0 hydrocodone-acetaminophen 10-325 mg tablet 1 tab PO .5 times daily PRN (Reason: pain) 30 Days Qty: 150 RF: 0 tizanidine 2 mg tablet 2 mg PO .1-2 tabs TID PRN (Reason: muscle spasticity) Qty: 180 RF: 1 gabapentin 400 mg capsule 400 mg PO TID 30 Days Qty: 90 RF: 1 divalproex 500 mg tablet extended release 24 hr 1,500 mg PO DAILY Qty: 270 RF: 3 topiramate 100 mg tablet 100 mg PO BID Qty: 180 RF: 3 duloxetine [Cymbalta] 60 mg capsule,delayed release(DR/EC) 60 mg PO DAILY Qty: 30 RF: 2 zolpidem [Ambien] 10 mg tablet 10 mg PO .hs Qty: 30 RF: 2 buspirone 15 mg tablet 15 mg PO BID 60 Days Qty: 60 RF: 2 Trelegy Ellipta 100-62.5-25 mcg blister with device 1 inh INHALATION DAILY Qty: 60 RF: 5 albuterol sulfate [Ventolin HFA] 90 mcg/actuation HFA aerosol inhaler 2 puff INHALATION Q6H PRN (Reason: shortness of breath or wheezing) 90 Days Qty: 25.5 RF: 1 pantoprazole 40 mg tablet,delayed release (DR/EC) 40 mg PO ONCE 30 Days Qty: 90 RF: 0 simvastatin 40 mg tablet See Rx Instructions .ROUTE .COMPLEX Qty: 90 RF: 0 ondansetron 4 mg tablet,disintegrating 4 mg PO Q8H PRN (Reason: nausea and vomiting) Qty: 7 RF: 0 Discharge Orders: Discharge ED (Routine); Ordered 10/25/21 Ordered By: Zena Higgins Referrals: Kendra Hannah DO [Primary Care Provider] - Papito Felder MD [Physician] - (Adhesive capsulitis- steroid injection? ) Discharge Diet: Usual diet Activity Restrictions/Additional Instructions: NSAIDs like aleve or ibuprofen for pain. This cold weather will worsen already existing painful conditions including arthritis and old injuries. Ice the area several times a day. Do passive ROM exercises daily. You will need to regain some strength in your trap muscle. Please follow up with Dr. Felder for possible MRI and/or steroid injection Coding Level of Care Code ED Automotive Glass Specialist for Crescencio Granados
[2021-10-25 08:25] VITALS: BP 153/96; PULSE 74; RESP 16; TEMP 36.4; O2SAT 96
== END 2021-10-25 08:26 | disposition home or self-care (01) ==
PROVIDERS: Emergency Provider Nurse Practitioner Family; PCP Family Medicine
DX: R20.8 Other disturbances of skin sensation (principal); Z86.73 Personal history of transient ischemic attack (TIA), and cerebral infarction without residual deficits; E78.5 Hyperlipidemia, unspecified; J44.9 Chronic obstructive pulmonary disease, unspecified; Z77.22 Contact with and (suspected) exposure to environmental tobacco smoke (acute) (chronic)
CPT/HCPCS: 99282

== ENCOUNTER → 2021-11-21 11:21 | Outpatient (BNVA) | payer MEDICARE, MEDICAID, SELFPAY ==
[2021-03-08 10:40] VITALS: BP 120/81; BMI 24.1
== END ==
PROVIDERS: PCP Family Medicine; Visit Provider Nurse Practitioner Family
DX: Z20.822 Contact with and (suspected) exposure to COVID-19 (principal); F17.219 Nicotine dependence, cigarettes, with unspecified nicotine-induced disorders
CPT/HCPCS: 87635

== ENCOUNTER → 2021-12-04 11:11 | Outpatient (BNVA) | payer MEDICARE, MEDICAID, SELFPAY ==
[2021-03-08 10:40] VITALS: BP 120/81; BMI 24.1
== END ==
PROVIDERS: PCP Family Medicine; Visit Provider Nurse Practitioner
DX: F33.1 Major depressive disorder, recurrent, moderate (principal); F41.1 Generalized anxiety disorder; F17.219 Nicotine dependence, cigarettes, with unspecified nicotine-induced disorders
CPT/HCPCS: 99214

== ENCOUNTER 2021-12-31 12:16 | Outpatient (CLI) | payer MEDICARE, MEDICAID, SELFPAY ==
[2021-03-08 10:40] VITALS: BP 120/81; BMI 24.1
--- NOTE | 2021-12-31 12:38 | XR_ITS ---
WS: [id number] Lumbar spine with flexion, extension, and neutral lateral, 12/31/2021 Clinical Data: SPONDYLOLISTHESIS LUMBAR REGION Comparison: None. Findings: No lumbar compression fractures are seen. There is a retrolisthesis of 0.4 cm of L5 on S1. There is a compression fracture with loss of at least 50% of the central vertebral body height of T12. There is disc narrowing at L5-S1. There is anterior osteophyte formation from L2 through L5. No limitation of motion or change in retrolisthesis is seen on flexion or extension. There is calcification in the wall of the abdominal aorta but no aneurysm. XR/XR lumbar spine f/e only [id number] Impression: 1. Degenerative disc narrowing at L5-S1. 2. Minimal anterior osteoarthritis L2-L5. 3. Retrolisthesis of 0.4 cm of L5 on S1. 4. No limitation of motion or change in or listhesis on flexion or extension. 5. 50% central compression fracture of T12 of indeterminate age.
== END 2021-12-31 12:17 | disposition home or self-care (01) ==
LOC: RAD 12:19
PROVIDERS: PCP Family Medicine; Visit Provider Nurse Practitioner
DX: M43.16 Spondylolisthesis, lumbar region (principal); M47.816 Spondylosis without myelopathy or radiculopathy, lumbar region; S22.089A Unspecified fracture of T11-T12 vertebra, initial encounter for closed fracture; X58.XXXA Exposure to other specified factors, initial encounter
CPT/HCPCS: 72120